=== PATIENT | female | born 1965 | race Caucasian/White ===

== ENCOUNTER 2023-08-30 20:19 | Emergency (ER) | payer SELFPAY ==
[~2023-08-30] VITALS: Ht 172.7 cm; Wt 74.8 kg
[2023-08-30 20:38] VITALS: TEMP 98.2
[2023-08-30] MEDS ORDERED: ACET-2605 PO (22:09)
[2023-08-30] MEDS ORDERED: IBUP-1957 PO (22:09)
[2023-08-30 22:18] VITALS: BP 132/80; O2SAT 98
[2023-08-30] MEDS ORDERED: ACETAMINOPHEN ES 500 MG TABLET PO ONE (22:30)
[2023-08-30] MEDS ORDERED: IBUPROFEN 600 MG TABLET PO ONE (22:30)
== END 2023-08-30 22:19 | disposition home or self-care (01) ==
LOC: ER 20:23
DX: S52.532A Colles' fracture of left radius, initial encounter for closed fracture (principal); W18.39XA Other fall on same level, initial encounter; Y93.89 Activity, other specified; Y92.89 Other specified places as the place of occurrence of the external cause; Y99.8 Other external cause status
CPT/HCPCS: 73090-TC; 73110